=== PATIENT | female | born 2000 | race Two or more races ===

== ENCOUNTER → 2021-01-06 | Outpatient (CLI) | payer BC ==
[~2021-01-06] MED LIST: ASCO-96 PO; CALC1CAP8 PO; CHOL10003 PO; PSYL575P16 PO; [UNRECOGNIZED DRUG - CODE] PO
== END | disposition home or self-care (01) ==
LOC: STAR 14:03
PROVIDERS: ATTEND Otolaryngology
DX: Z20.822 Contact with and (suspected) exposure to COVID-19 (principal); J35.01 Chronic tonsillitis
CPT/HCPCS: U0003

== ENCOUNTER 2021-01-12 05:32 | Day surgery (SDC) | payer OTHER, BC ==
[~2021-01-12] VITALS: Ht 157.5 cm; Wt 86.4 kg
[2021-01-12] MEDS ORDERED: ACET325T14 PO (06:05)
[2021-01-12] MEDS ORDERED: SENN-99 PO (06:05)
[2021-01-12] MEDS ORDERED: IBUP-1222 PO (06:05)
[2021-01-12] MEDS ORDERED: OXYC5CAP2 PO (06:05)
[2021-01-12 06:18] VITALS: BP 119/77
[2021-01-12] MEDS ORDERED: LACTATED RINGERS 1,000 ML IV SCH (06:30)
[2021-01-12] MEDS ORDERED: CHLORHEXIDINE 15 ML UDC PO ONE (06:30)
[2021-01-12] MEDS ORDERED: SILVER NITRATE STICK TP ONE (06:46)
[2021-01-12] MEDS ORDERED: MIDAZOLAM 1 MG/ML, 2ML ONE (06:58)
[2021-01-12] MEDS ORDERED: FENTANYL PF 250 MCG/5ML ONE (06:58)
[2021-01-12] MEDS ORDERED: NEOSTIGMINE 1 MG/ML, 10ML ONE (07:12)
[2021-01-12] MEDS ORDERED: DEXAMETHASONE 4 MG/ML, 1ML ONE (07:12)
[2021-01-12] MEDS ORDERED: PROPOFOL 10 MG/ML, 20ML ONE (07:12)
[2021-01-12] MEDS ORDERED: CEFAZOLIN 1,000 MG ONE (07:12)
[2021-01-12] MEDS ORDERED: ROCURONIUM 10 MG/ML,10ML ONE (07:12)
[2021-01-12] MEDS ORDERED: ONDANSETRON 2MG/ML, 2ML ONE (07:12)
[2021-01-12] MEDS ORDERED: GLYCOPYRROLATE 0.2MG/1ML, 5ML ONE (07:12)
[2021-01-12] MEDS ORDERED: SUCCINYLCHOLINE 20 MG/ML, 10ML ONE (07:12)
[2021-01-12] MEDS ORDERED: FENTANYL PF 100 MCG/2ML ONE ×2 (07:56→08:25)
[2021-01-12] MEDS: FENTANYL PF 100 MCG/2ML IV PRN ×3 (07:59→08:26)
[2021-01-12] MEDS ORDERED: KETOROLAC 30 MG/1 ML IV PRN (08:00)
[2021-01-12] MEDS ORDERED: ONDANSETRON 2MG/ML, 2ML IVPush PRN (08:00)
[2021-01-12] MEDS ORDERED: HYDROmorphone 1 MG/ML, 1ML INJ IVPush PRN (08:00)
[2021-01-12] MEDS ORDERED: METOCLOPRAMIDE 5 MG/ML, 2ML IVPush PRN (08:00)
[2021-01-12] MEDS ORDERED: DIAZEPAM 5 MG/ML, 2ML IVPush PRN (08:00)
[2021-01-12] MEDS ORDERED: ACETAMINOPHEN 325 MG TABLET PO PRN (08:00)
[2021-01-12] MEDS ORDERED: DIPHENHYDRAMINE 50 MG/ML, 1ML IVPush PRN (08:00)
[2021-01-12] MEDS ORDERED: MEPERIDINE/PF 25MG/0.5ML IVPush PRN (08:00)
[2021-01-12] MEDS ORDERED: LABETALOL 5MG/ML, 20ML IV PRN (08:00)
[2021-01-12] MEDS ORDERED: HALOPERIDOL 5 MG/ML IV PRN (08:00)
[2021-01-12] MEDS ORDERED: EPHEDRINE 50 MG/ML, 1ML IVPush PRN (08:00)
[2021-01-12] MEDS ORDERED: hydrALAzine 20 MG/ML, 1ML IV PRN (08:00)
[2021-01-12] MEDS ORDERED: PROMETHAZINE 25 MG/ML, 1ML IVPush PRN (08:00)
[2021-01-12] MEDS ORDERED: OXYcodone 5 MG/5 ML ORAL.SOL UDC PO PRN (08:00)
[2021-01-12] MEDS ORDERED: METOPROLOL 1 MG/ML, 5ML IV PRN (08:00)
[2021-01-12] MEDS ORDERED: OXYcodone 5 MG/5 ML ORAL.SOL UDC ONE (08:12)
[2021-01-12] MEDS ORDERED: IBUPROFEN 600 MG TABLET PO ONE (09:00)
== END 2021-01-12 10:00 | disposition home or self-care (01) ==
LOC: OUT 05:32
PROVIDERS: ATTEND Otolaryngology
DX: J35.01 Chronic tonsillitis (principal); J35.3 Hypertrophy of tonsils with hypertrophy of adenoids; E66.9 Obesity, unspecified; Z68.35 Body mass index [BMI] 35.0-35.9, adult
CPT/HCPCS: 42826; 81025; 88300; J2250; J3010; J7120; J0690; J1100; J2405; J2704; J2710; J0330

== ENCOUNTER 2021-05-17 12:19 | Emergency (ER) | payer OTHER, BC ==
[~2021-05-17] VITALS: Ht 157.5 cm; Wt 87.2 kg
[~2021-05-17 12:19] MED LIST changes: +ACET325T14 PO; +IBUP-1222 PO; +OXYC5CAP2 PO; +SENN-99 PO
[2021-05-17 14:11] VITALS: BP 140/84
[2021-05-17] MEDS ORDERED: DIPH,PERTUSS(ACELL),TET VAC/PF 0.5 ML IM-VACC ONE ×2 (14:30→14:53)
[2021-05-17] MEDS ORDERED: NEOSPORIN OINT. PKT 1 PACKET ONE ×2 (14:45→15:05)
== END 2021-05-17 15:16 | disposition home or self-care (01) ==
LOC: ED 15:08
DX: S56.912A Strain of unspecified muscles, fascia and tendons at forearm level, left arm, initial encounter (principal); S63.522A Sprain of radiocarpal joint of left wrist, initial encounter; S60.222A Contusion of left hand, initial encounter; W18.30XA Fall on same level, unspecified, initial encounter; Y93.89 Activity, other specified; Y92.89 Other specified places as the place of occurrence of the external cause; Y99.8 Other external cause status
CPT/HCPCS: 90471; 90715